=== PATIENT | female | born 1950 | race Caucasian/White ===

== ENCOUNTER 2016-05-28 02:14 | Inpatient (IN) | payer OTHER, MEDICARE ==
[~2016-05-28] VITALS: Ht 160 cm; Wt 74.8 kg
[~2016-05-28 02:14] MED LIST: LEVOTHYROXINE100 MC1 PO
--- NOTE | 2016-05-28 10:01 | Patient Discharge Instructions ---
Discharge Instructions General Discharge Information You were seen/treated for: joint pain You had these procedures: total hip replacement Watch for these problems: temp>101, increased redness or drainage of wounds Do not soak the wound: Yes Other wound care: Keep incision clean and dry. May shower, no bathing. Diet Continue normal diet: Yes Activity Activity Self Limited: Yes Activity Limited to: Weight bear as tolerated Acute Coronary Syndrome Inclusion Criteria At DC or during hospital stay patient has or had the following: ACS DIAGNOSIS No Discharge Core Measures Meds if any: Prescribed or Continued at Discharge Meds if any: NOT Prescribed or Continued at Discharge Congestive Heart Failure Inclusion Criteria At DC or during hospital stay patient has or had the following: CHF DIAGNOSIS No Discharge Core Measures Meds if any: Prescribed or Continued at Discharge Meds if any: NOT Prescribed or Continued at Discharge Cerebrovascular accident Inclusion Criteria At DC or during hospital stay patient has or had the following: CVA/TIA Diagnosis No Discharge Core Measures Meds if any: Prescribed or Continued at Discharge Meds if any: NOT Prescribed or Continued at Discharge Venous thromboembolism Inclusion Criteria VTE Diagnosis No VTE Type NONE VTE Confirmed by (Test) NONE Discharge Core Measures - Per Current guidelines, there needs to be overlap - treatment for the first 5 days of Warfarin therapy. - If discharged on Warfarin prior to 5 days of - overlap therapy, the patient will need to be - assessed for post discharge needs including - *Post discharge parental anticoagulation - *Warfarin and/or parental anticoagulation education - *Follow up date to check INR post discharge At least 5 days overlap therapy as Inpatient No Meds if any: Prescribed or Continued at Discharge Note: Overlap Therapy is Warfarin and Anticoagulant Meds if any: NOT Prescribed or Continued at Discharge
[2016-05-28] MEDS ORDERED: MIRALAX17 G1 PO (10:03)
[2016-05-28] MEDS ORDERED: COLACE100 M1 PO (10:03)
[2016-05-28] MEDS ORDERED: ASPIRIN EC325 M2 PO (10:03)
[2016-05-28] MEDS ORDERED: DILAUDID4 M1 PO (10:03)
[2016-05-28] MEDS ORDERED: MS CONTIN15 M2 PO (10:03)
--- NOTE | 2016-05-28 10:05 | Admission Core Measures ---
Admission Meds I reviewed the following Meds: Current Medications Sig/Dana Start time Last Medication Dose Stop Time Status Admin Acetaminophen 975 MG ONCE 05/28 NR (Tylenol) 05/28 2358 Cefazolin Sodium 2,000 MG ONCE 05/28 NR (Kefzol-Ancef Inj) 05/28 2358 Oxycodone HCl 10 MG ONCE 05/28 0000 NR (Roxicodone) 05/28 2358 Acute Coronary Syndrome Inclusion Criteria ACS Diagnosis No Inpatient Core Measures LDL Reminder: If No, please order W/I first 24hr of stay Congestive Heart Failure Inclusion Criteria CHF Diagnosis No Cerebrovascular accident Inclusion Criteria CVA/TIA Diagnosis No Inpatient Core Measures Bedside Swallow Eval Reminder: If BSE failed, place ST order Antithrombotic Reminder: Order Antithrombotic Medication by end of day 2 Antithrombotic Reminder: Document Reason Antithrombotic Not ordered by end of day 2 AFIB/Flutter Reminder: If Present, add to problem list AFIB/Flutter Reminder: Order Anticoag Medication for pts with AFIB/Flutter Atherosclerosis Reminder: If Present, add to problem list LDL Reminder: If No, please order W/I first 24hr of stay PT Order Reminder: If No, please order Venous thromboembolism Inpatient Core Measures VTE Risk Factors: Age > 40, Surgery No [facility] VTE prophylaxis d/t No contraindications No VTE Pharm Prophylaxis d/t No contraindications Inclusion Criteria - Per Current guidelines, there needs to be overlap - treatment for the first 5 days of Warfarin therapy. - Parenteral Anticoagulation (IV or SC) needs to be - given along with Warfarin therapy. VTE Diagnosis No VTE Type NONE VTE Confirmed by (Test) NONE Problem List As ranked by this Provider includes Assessment & Plan 1. Status post total replacement of right hip HOME MEDS Home Med List Aspirin (Ecotrin*) 325 MG TABLET.DR 1 TAB PO BID blood thinner Docusate Sodium (Colace) 100 MG CAPSULE 1 CAP PO BID constipation Hydromorphone HCl (Dilaudid) 4 MG TABLET 1-2 TAB PO Q4P PAIN Levothyroxine Sodium 100 MCG TABLET 1 TAB PO DAILY HYPOTHYOID (Reported) Morphine Sulfate (Ms Contin) 15 MG TABLET.ER 1 TAB PO BID PAIN Polyethylene Glycol 3350 (Miralax) 17 GRAM POWD.PACK 1 PAC PO DAILY constipation
--- NOTE | 2016-05-28 10:07 | Surg Short-stay <48hrs Dis Sum ---
Visit Information Visit Dates Admission Date: 05/28/16 Discharge Date: 05/30/16 Surgical Short Stay DC Summary Admission Diagnosis: joint pain Final Diagnosis: s/p Right total hip replacement Procedure(s): R NAYELI - see operative report Summary/Significant Findings: Pt underwent R THR by Dr Martinez and was brought to the PACU in stable condition. Post operatively she was able to void spontaneously, her pain was well controlled with oral medication and she worked with PT. She was deemed stable for discharge and was cleared by PT for discharge to home with services. Condition at Discharge: good Discharge Disposition: home health services Discharge instructions provided to patient/family: Yes Post discharge follow-up plan: Keep scheduled appointment with Dr Martinez in 6 weeks. PCP follow up within 2 weeks.
--- NOTE | 2016-05-28 13:13 | RADIOLOGY REPORT ---
EXAMINATION: XR HIP, RIGHT CLINICAL INFORMATION: Status post right total hip replacement. COMPARISON: None TECHNIQUE: Two views of the right hip. FINDINGS: Prosthetic components of the right total hip arthroplasty are appropriately aligned. No periprosthetic fracture. Gas from recent surgery is present in the surrounding soft tissues. IMPRESSION: Normal postoperative appearance of the right total hip prosthesis.
--- NOTE | 2016-05-28 13:46 | Operative Report ---
Operative/Inv Procedure Report Surgery Date: 05/28/16 Name of Procedure: Right total hip replacement Pre-Operative Diagnosis: Primary right hip DJD Post-Operative Diagnosis: Same Estimated Blood Loss: 300 Surgeon/Sifter And Miller: JR HILL,PEPE Pablo Anesthesia: block Operative/Procedure Note Note: Description of Procedure: The patient was taken to the operating room and positively identified. After induction of spinal anesthesia and administration of appropriate pre-operative antibiotics, the patient was positioned supine on the operating room table and all bony prominences were well padded. After performing a surgical timeout, the right lower extremity was prepped and draped in the usual sterile fashion. A direct anterior approach was made to the right hip. The incision was carried sharply through superficial soft tissues to the level of the fascia. Meticulous hemostasis was maintained with Bovie electocautery. The fascia over the tensor fascia giorgio muscle was opened sharply and the interval between the TFL and the sartorius was entered bluntly taking care to stay lateral to the lateral femoral cutaneous nerve. Retractors were placed around the femoral neck and the pericapsular fat was identified. The ascending branches of the lateral femoral circumflex vessels were identified and carefully coagulated. The pericapsular fat and anterior capsule were then resected. A napkin ring osteotomy was performed and the femoral head was removed without difficulty. Attention was then turned to the acetabulum. After appropriate placement of retractors, the acetabulum was exposed. Soft tissue was cleaned from the acetabular margin and notch. Overhanging osteophytes were removed and the teardrop was exposed. The acetabulum was then sequentially reamed to accept a 52 mm Janelle Tritanium hemispherical solid back shell. This was impacted into place in the appropriate position and fitted with a 32 mm Trident X3 zero degree polyethylene insert. Attention was then turned to the femur. After performing the appropriate ligament releases, the proximal femur was exposed. It was then sequentially broached to accept a size 3 [place] accolade 2 stem. This was trialed for leg length and stability. The trial component was removed and the final component was impacted into place. The trunnion was carefully cleaned and fit with a 32 mm, +0 Biolox delta ceramic femoral head. The hip was reduced and put through a full range of motion and found to be stable. The articular space was then irrigated with sterile saline. The periarticular soft tissues were infilitrated with Marcaine. The fascial layer was closed with interrupted #1 vicryl suture and the skin was re-approximated with interrupted 2 -0 vicryl. The skin was closed with a running 3-0 V-Lock suture. Steri-strips and a sterile dressing were applied. The patient was awakened and taken to the recovery room in satisfactory condition. 's
[2016-05-28 14:15] VITALS: BP 110/70
--- NOTE | 2016-05-28 14:15 | NUR ---
ADMISSION NOTE: PT ARRIVED TO FLOOR IN STRETCHER WITH DISTRIBUTION, WAS MET IN THE HALLWAY BY PHYSICAL THERAPY, AMBULATED WITH RW TO RECLINER. +CMS, A/OX3, ROOM AIR, +PP, DENIES PAIN, IV SITE INTACT, SURGE INCISION TO RT HIP DSG C/D/I, IV FLUIDS RUNNING PER MD GALICIA. ORIENTED TO ROOM, RESTING COMFORATBLY IN RECLINER, FAMILY AT SIDE. WILL CONTINUE TO MONITOR.
--- NOTE | 2016-05-28 14:53 | PN- Orthopedic ---
Subjective Subjective: poc s/p right manuel no major cmplaints now deneis cp, sb, n n+v with diet Objective Vital Signs and I&Os Vital Signs Date Time Temp Pulse Resp B/P Pulse O2 O2 Flow FiO2 Ox Delivery Rate 05/28 1415 97.7 63 20 110/70 97 Room Air Physical Exam: cv: rrr lungs: clear abd: soft ext: thigh soft, distal cms intact drsg drg dtv at 330p Assessment/Plan Assessment/Plan ortho stable ambulating with pt plan asa fro dvt prophylaxis cont oob advance diet plan for home dc/ Core Measures/Miscellaneous Venous Thromboembolism VTE Risk Factors: Age > 40, Surgery VTE Contraindications: No Contraindications VTE Diagnosis: No VTE Type: NONE VTE Confirmed by (Test): NONE Beta Malvin Is Beta Malvin a Home Med? No Antibiotics Is Patient on Antibiotics? Yes If Yes: prophylaxis
[2016-05-28 18:00] VITALS: BP 118/64
[2016-05-28 22:36] VITALS: BP 124/62
[2016-05-29 07:20] VITALS: BP 111/58
[2016-05-29 08:26] LABS: ABSOLUTE BASOPHIL COUNT 0 /CUMM (0.0-0.2); ABSOLUTE EOSINOPHIL COUNT 0 /CUMM (0.0-0.7); ABSOLUTE GRANULOCYTE CT 5.3 /CUMM (1.4-6.5); ABSOLUTE LYMPH COUNT 1.3 /CUMM (1.2-3.4); ABSOLUTE MONOCYTE COUNT 0.6 /CUMM (0.10-0.60); BASOPHIL % 0.4 % (0.0-2.0); EOSINOPHIL % 0.2 % (0-5); GRANULOCYTE % 73.9 % (42.2-75.2); HEMATOCRIT 33.5 % (37-47); MEAN CORPUSCULAR HGB 28.6 PG (27.0-31.0); MEAN CORPUSCULAR HGB CONC 33.5 G/DL (33.0-37.0); MEAN CORPUSCULAR VOLUME 85.5 FL (81.0-99.0); MEAN PLATELET VOLUME 9.5 FL (7.4-10.4); PLATELET COUNT 161 /CUMM (130-400); RBC DISTRIBUTION WIDTH 13.4 % (11.5-14.5); RED BLOOD CELL CT 3.92 /CUMM (4.20-5.40); WHITE BLOOD CELL COUNT 7.2 /CUMM (4.8-10.8)
--- NOTE | 2016-05-29 08:39 | PN- Orthopedic ---
Subjective Subjective: pod#1 s/p right manuel 6/10 pain, better with po pain meds denies cp, sob, no n+v with diet c/o frequent up and down for urination Objective Vital Signs and I&Os Vital Signs Date Time Temp Pulse Resp B/P Pulse O2 O2 Flow FiO2 Ox Delivery Rate 05/29 0720 98.8 71 20 111/58 97 Room Air 05/28 2236 98.4 71 20 124/62 97 Room Air 05/28 1800 98.6 75 18 118/64 96 Room Air 05/28 1415 97.7 63 20 110/70 97 Room Air Intake & Output 05/29 1600 05/29 0800 05/29 0000 05/28 1600 05/28 0800 05/28 0000 Intake Total 1200 Output Total 250 650 600 Balance -250 -650 600 Intake, IV 300 Intake, Oral 900 Output, Urine 250 650 600 Patient 165 lb Weight Physical Exam: cv: rrr lungs: clear abd: soft, +bs ext: distal cms intact thigh soft, drsg dry no calf tenderness Assessment/Plan Assessment/Plan ortho stable plan f/u am labs iv toradol for pain if bun/cr remains stable as preop labs oob with pt/ambulate home d/c plan Core Measures/Miscellaneous Venous Thromboembolism VTE Risk Factors: Age > 40, Surgery VTE Contraindications: No Contraindications VTE Diagnosis: No VTE Type: NONE VTE Confirmed by (Test): NONE Beta Malvin Is Beta Malvin a Home Med? No Antibiotics Is Patient on Antibiotics? Yes If Yes: prophylaxis
[2016-05-29 14:37] VITALS: BP 118/68
[2016-05-29 22:14] VITALS: BP 110/80
--- NOTE | 2016-05-30 00:29 | NUR ---
ALERT AND ORIENTED X 3. VITAL SIGNS STABLE. DENIES CHEST PAIN. + PULSES ON ROOM AIR. MEDICATION GIVEN FOR PAIN. ICE PACK TO R HIP. STEADY GAIT WHEN AMBULATING W/RW. PATIENT RESTING AT THIS TIME. WILL CONTINUE TO MONITOR
[2016-05-30 02:02] VITALS: BP 132/70
[2016-05-30 04:00] VITALS: BP 128/74
--- NOTE | 2016-05-30 07:31 | PN- Orthopedic ---
Subjective Subjective: pod#2 s/p right manuel no major complaints c/o of increased left non operative hip pain when sitting and ambulatiopn denies cp, sob, no n+v with diet ambulating well with pt Objective Vital Signs and I&Os Vital Signs Date Time Temp Pulse Resp B/P B/P Pulse O2 O2 Flow FiO2 Mean Ox Delivery Rate 05/30 0400 98.2 89 18 128/74 99 Room Air 05/30 0202 98.3 72 18 132/70 97 Room Air 05/30 0000 Room Air 05/29 2214 98.5 77 19 110/80 97 Room Air 05/29 1437 97.8 71 20 118/68 98 Room Air Intake & Output 05/30 0800 05/30 0000 05/29 1600 05/29 0800 05/29 0000 05/28 1600 Intake Total 157 830 200 7854 Output Total 300 800 250 650 600 Balance -143 500 -245 -250 -650 600 Intake, IV 7 75 300 Intake, Oral 150 500 480 900 Output, Urine 300 800 250 650 600 Patient 165 lb Weight Physical Exam: cv: rrr lungs: clear abd: soft, +bs ext: drsg changed wound c/d/i no calf tenderness bilat thigh soft Assessment/Plan Assessment/Plan orth stable plan oob with pt/stairs asa for dvt prophylaxis ice to left hip titrate pain meds poss home d/c if cleared by pt Core Measures/Miscellaneous Venous Thromboembolism VTE Risk Factors: Age > 40, Surgery VTE Contraindications: No Contraindications VTE Diagnosis: No VTE Type: NONE VTE Confirmed by (Test): NONE Beta Malvin Is Beta Malvin a Home Med? No Antibiotics Is Patient on Antibiotics? Yes If Yes: prophylaxis
--- NOTE | 2016-05-30 14:34 | NUR ---
NURSING NOTE: PATIENT LEFT FLOOR VIA W/C WITH [employer] FOR DISCHARGE. PATIENT A/OX3, PAIN TOLERABLE PER PATIENT AT THIS TIME WITH CURRENT PAIN MEDICATIONS. IV DISCONTINUED. PRESCRIPTIONS TO BE PICKED UP IN [facility] BY . ALL DISCHARGE INFORMATION GIVEN TO PATIENT AND AT BEDSIDE.
== END 2016-05-30 14:25 | disposition home health service (06) | DRG 470 ==
LOC: ENRESERVTM → ENRESERVDT → SDA 02:14 → 2NB 02:14 → EDBD 07:00 → 2NB 13:53 → ENPENDDIS 05-30 07:39 → 2NB 05-30 14:25
PROVIDERS: Physician Assistant Surgical; ADMIT Orthopaedic Surgery
PROC: 0SR904A Replacement of Right Hip Joint with Ceramic on Polyethylene Synthetic Substitute, Uncemented, Open Approach (ICD-10-PCS; principal; 2016-05-28)
DX: M16.11 Unilateral primary osteoarthritis, right hip (principal); E03.9 Hypothyroidism, unspecified; M81.0 Age-related osteoporosis without current pathological fracture
CPT/HCPCS: 2NBSP; 36415; 73502-RT; 82436; 88304; 97110-GO; 97116-GO; 97530-GO; J0690; J1885; J2405; J7042